=== PATIENT | female | born 1990 | race Caucasian/White ===

== ENCOUNTER 2023-04-06 21:46 | Outpatient (REF) | payer OTHER, SELFPAY ==
[2023-04-11 17:09] LABS: Age Gdln ACOG Testing Note (.); HPV Aptima Negative (Negative); IGP, Aptima HPV, rfx 16/18,45 Note (.)
== END 2023-04-06 21:47 | disposition home or self-care (01) ==
LOC: LAB 21:46
PROVIDERS: PCP Obstetrics & Gynecology; Visit Provider Obstetrics & Gynecology
DX: Z01.419 Encounter for gynecological examination (general) (routine) without abnormal findings (principal)
CPT/HCPCS: 87624; G0145

== ENCOUNTER 2024-04-09 20:32 | Outpatient (REF) | payer BC, SELFPAY ==
--- OUTSIDE RECORDS SUMMARY | 2024-04-09 20:37 | XMS_ITS | CCD ---
Author Organization [facility] Care Team Providers Care Scale Operator Name Role Phone CAROLINA .MIKE Primary Care Unavailable JEANNIE ., DR ESPOSITO Attending Unavailable JEANNIE ., DR ESPOSITO Consulting Unavailable JEANNIE ., DR ESPOSITO Admitting Unavailable Alex BHATTI, Althea Hernandez Unavailable VAIBHAV DENNIS Attending Unavailable Allergies Allergy Classification Reported Allergen(s) Allergy Type Date of Onset Reaction(s) Facility (2 sources) Latex Propensity to adverse reactions 0 Rash, Unknown [facility] Problems Problem Classification Problem Date Documented Da te Episodic/Chronic Other screening for suspected conditions (not mental disorders or infectious disease) (4 sources) Encounter for screening for malignant neoplasm of cervix; Translations: [ENC SCREENING MALIG NEOPLASM CERV] Onset: 03-31-2022 Episodic Results Test Name Value Interpretation Reference Range Facil ity PAP ACOG PANEL 2: 30 to 65on 04-06-2022 . . Normal [facility] Comment on above: Result Comment: Performed at: WB Performed By: #### [id number] #### [facility] [address] [address] [address] Arlene Owens Age Gdln ACOG Testing 30-65 Normal [facility] Comment on above: Performed By: #### [id number] #### [facility] [address], [place] [address] Dr. Arlene Owens DIAGNOSIS: Comment Normal [facility] Comment on above: Result Comment: NEGATIVE FOR INTRAEPITHE LIAL LESION OR MALIGNANCY. Performed at: WB Performed By: #### [id number] #### [facility] [id number] Arlene Owens HPV Aptima Negative Normal Negative [facility] Comment on above: Result Comment: This nucleic acid amplif ication test detects fourteen high-risk HPV types (16,18,31,33,35,39,45,51,52,56,58,59,66,68) without differentiation. Performed at: =G Performed By: #### [id number] #### [facility] [address] [place] [address] Dr. Arlene Owens HPV Genotype Reflex Comment Normal [facility] Comment on above: Result Comment: Criteria not met, HPV Ge notype not performed. Performed at: WB Performed By: #### [id number] #### [facility] [address] [place] [address] Dr. Arlene Owens Methodology: Comment Normal [facility] Comment on above: Result Comment: This liquid based ThinPr ep(R) pap test was screened with the use of an image guided system. Performed at: WB Performed By: #### [id number] #### [facility] [address] [place] [address] Dr. Arlene Owens Note: Comment Normal [facility] Comment on above: Result Comment: The Pap smear is a scree aleksander test designed to aid in the detection of premalignant and malignant conditions of the uterine cervix. It is not a diagnostic procedure and should not be used as the sole means of detecting cervical cancer. Both false-positive and false-negative reports do occur. . Performed at: WB Performed By: #### [id number] #### [facility] [address] [place] [address] Dr. Arlene Owens Performed by: Comment Normal [facility] Comment on above: Result Comment: Byron Horn Cytotechn ologist (ASCP) Performed at: WB Performed By: #### [id number] #### [facility] [address] [place] [address] Dr. Arlene Owens Specimen adequacy: Comment Normal [facility] Comment on above: Result Comment: Satisfactory for evaluat ion. Endocervical and/or squamous metaplastic cells (endocervical component) are present. Performed at: WB Performed By: #### [id number] #### [facility] [address] [place] [address] Dr. Arlene Owens Cytology Cervical or vaginal smear or scraping studyon 03-31-2022 [facility] Healthcar e Vital Signs Date Time Vital Sign Value Performing Clinician Faci lity 04-06-2023 08:51-0500 Body height 160 cm Vaibhav Jeannie DO Work Phone: [facility] 04-06-2023 08:51-0500 Body mass index (BMI) [Ratio] 24.8 kg/m2 Vaibhav Jeannie DO Work Phone: [facility] 04-06-2023 08:51-0500 Body weight 63.5 kg Vaibhav Jeannie DO Work Phone: [facility] 04-06-2023 08:51-0500 Diastolic blood pressure 70 mm[Hg] Vaibhav Jeannie DO Work Phone: [facility] 04-06-2023 08:51-0500 Systolic blood pressure 116 mm[Hg] Vaibhav Jeannie DO Work Phone: [facility] Healthcare Encounters Encounter Date Encounter Type Care Provider Facility Start: 04-06-2023 End: 04-06-2023 ambulatory VAIBHAV DENNIS Not Available Start: 04-06-2023 End: 04-06-2023 Patient encounter procedure Vaibhav Jeannie DO Work Phone: [facility] Start: 04-06-2023 End: 04-06-2023 Periodic preventive med est patient 18-39 yrs Vaibhav Jeannie DO Work Phone: [facility] BCP OB Comment on above: Well woman exam with routine gynecological exam Start: 03-31-2022 End: 03-31-2022 ambulatory MIKE GE . Facility: Procedures Date Procedure Procedure Detail Performing Clinician Start: 03-31-2022 Cytp cerv/vag auto t hin layer prep mnl screen Vaibhav Jeannie DO Work Phone: Plan of Treatment Date Care Activity Detail Author Cytology Cervical or vaginal smear or scraping study Pap Smear Pathology and Cytology Routine Well woman exam with routine gynecological exam Ordered: 04/06/2023 [facility] Healthcare Work Phone: Comment on above: Ordered: 04/06/2023 Human papilloma viru s DNA [Presence] in Unspecified specimen by Probe with amplification HPV DNA probe, amplified Microbiology Routine Well woman exam with routine gynecological exam Ordered: 04/06/2023 [facility] Healthcare Comment on above: Ordered: 04/06/2023 Payers Date Payer Category Payer Private Health Insurance [facility] [id number] 2023-Present [address] [address] [place] [address] [id number] 2023 Private Health Insurance [id number] 1990 Unknown [id number] 1990 Unknown [id number] 1959 Unknown [id number] Social History Date Type Detail Facility Start: 03-09-2023 Tobacco smoking stat [facility] Never smoked tobacco [facility] Start: 03-09-2023 Tobacco use and exposure Smokeless t obacco non-user [facility] Start: 04-06-2023 Alcohol intake Lifetime non-d estefania (finding) [facility] Start: 03-09-2023 History of Social function [facility] Start: 03-09-2023 Tobacco use panel [facility] Start: 1990 Sex Assigned At Not on file [facility] History of Present illness Narrative 04-06-2023 Kylah Parsons MA - 04/06/2023 8:30 AM EST Note Date & Type Note Facility 04-06-2023 History of Presen t illness Narrative Reason for Appointment: Patient ID: Miryam Humphreys is a 33 y.o. female who presents for Gynecologic Exam Patient presents today for Annual Exam appointment. Current Medications: currently has no medications in their medication list. Medical History: Active Ambulatory Problems Diagnosis Date Noted No Active Ambulatory Problems Resolved Ambulatory Problems Diagnosis Date Noted No Resolved Ambulatory Problems No Additional Past Medical History No family history on file. Social History Tobacco Use Smoking status: Never Smokeless tobacco: Never Substance Use Topics Alcohol use: Never Drug use: Never History reviewed. No pertinent surgical history. Allergies Allergen Reactions Latex Rash and Unknown Review of Systems: Review of Systems Constitutional: Negative. HENT: Negative. Eyes: Negative. Respiratory: Negative. Cardiovascular: Negative. Gastrointestinal: Negative. Musculoskeletal: Negative. Skin: Negative. Neurological: Negative. Psychiatric/Behavioral: Negative. All other systems reviewed and are negative. Hematological: Negative. Endocrine: Negative. Objective Physical Exam Constitutional: Appearance: Normal appearance. She is well-developed. Genitourinary: Vulva normal. Right Adnexa: not tender and no mass present. Left Adnexa: not tender and no mass present. No cervical discharge. Breasts: Breasts are soft. Right: Normal. Left: Normal. HENT: Head: Normocephalic. Nose: Nose normal. Mouth/Throat: Mouth: Mucous membranes are moist. Cardiovascular: Rate and Rhythm: Normal rate and regular rhythm. Pulmonary: Effort: Pulmonary effort is normal. Breath sounds: Normal breath sounds. Abdominal: General: Bowel sounds are normal. There is no distension. Palpations: Abdomen is soft. Tenderness: There is no abdominal tenderness. There is no guarding or rebound. Musculoskeletal: General: No swelling. Normal range of motion. Cervical back: Normal range of motion. Right lower leg: No edema. Left lower leg: No edema. Neurological: General: No focal deficit present. Mental Status: She is alert and oriented to person, place, and time. Skin: General: Skin is warm and dry. Psychiatric: Mood and Affect: Mood normal. Behavior: Behavior normal. Vitals and nursing note reviewed. Exam conducted with a cell geneticist present. Vitals: Estimated body mass index is 24.8 kg/m as calculated from the following: Height as of this encounter: 5' 3 . Weight as of this encounter: 140 lb. BP: 116/70 Patient's last menstrual period was 03/12/2023. Assessment/Plan Encounter Diagnosis Name Primary? Well woman exam with routine gynecological exam Patient presents today for an annual exam. Patient states she is doing well and has no complaints. Pap was obtained without difficulty. Follow Up: Patient is to return in one year for annual unless needed otherwise. Documented by Kylah Parsons MA on behalf of: Vaibhav Dennis DO documented in this encounter [facility] Evaluation note Note Date & Type Note Facility Evaluation note Diagnosis Well woman exam with routine gynecological exam Routine gynecological examination documented in this encounter [facility] Summary Purpose Family History No Family History Records FoundNo Family History Records Found Advance Directives No Advanced Directives Records FoundNo Advanced Directives Records Found Additional Source Comments INFORMATION SOURCE (unrecogn ized section and content) DATE CREATED AUTHOR 07/06/2022 [facility] DATE CREATED AUTHOR AUTHOR'S ORGANIZ ATION 04/07/2023 [facility] EPIC Reason for Visit (unrecogniz ed section and content) Reason Comments Gynecologic Exam Care Teams (unrecognized sec tion and content) Scale Operator Relationship Specialty Start Date End Date Althea Johnson MD [address] [place] [id number] PCP - External PCP Family Medicine 07/30/22 FOR RECORDS PERTAINING TO PATIENTS WHO ARE OR HAVE BEEN ENROLLED IN A CHEMICAL DEPENDENCY/SUBSTANCEABUSE PROGRAM, SOME INFORMATION MAY BE OMITTED. This clinical summary was aggregated from multiple sources. Caution should be exercised in using it in the provision of clinical care. This summary normalizes information from multiple sources, and as a consequence, information in this document may materially change the coding, format and clinical context of patient data. In addition, data may be omitted in some cases. CLINICAL DECISIONS SHOULD BE BASED ON THE PRIMARY CLINICAL RECORDS. [facility] [employer] [facility]. provides no warranty or guarantee of the accuracy or completeness of information in this document.
[2024-04-12 15:08] LABS: Age Gdln ACOG Testing Note (.); HPV Aptima Negative (Negative); IGP, Aptima HPV, rfx 16/18,45 Note (.)
== END 2024-04-09 20:33 | disposition home or self-care (01) ==
LOC: LAB 20:32
PROVIDERS: PCP Obstetrics & Gynecology; Visit Provider Obstetrics & Gynecology
DX: Z01.419 Encounter for gynecological examination (general) (routine) without abnormal findings (principal)
CPT/HCPCS: 87624; 88175